=== PATIENT | female | born 1950 | race Caucasian/White ===

== ENCOUNTER 2024-03-03 22:10 | Emergency (ER) | payer MEDICARE, SELFPAY ==
--- NOTE | ~2024-03-03 | CT_ITS ---
CT of the Abdomen and Pelvis: Indication: Abdominal pain Technique: 2.5 mm axial scans were obtained through the abdomen and pelvis following intravenous adm inistration of 100 cc of Omnipaque 350. Dose reduction technique was used on this scan by utilizing a utomated exposure control and iterative reconstruction technique. The dose-length product (DLP) was 1 185.86 mGy-cm. Findings: Scans through the lung bases are unremarkable. The liver, pancreas, adrenals and kidneys are within normal limits. Suggestion of numerous subcentime ter hypodensities throughout the spleen. Cholecystectomy clips are present. There are atherosclerotic calcifications of the aorta. No lymphadenopathy. No bowel obstruction or bowel wall thickening. Ventral hernia superior to the umbilicus contains exte nsive transverse colon. Additional ventral hernia just inferior contains small bowel loops.. Images through the pelvis were performed. Urinary bladder unremarkable. No pelvic mass seen. No ascit es. Impression: Bowel containing ventral hernias, as detailed above. Suggestion of numerous subcentimeter hypodensities of the spleen, indeterminate. Splenic microabscess es are a consideration, versus numerous small splenic cysts or other lesions. Reviewed, dictated and finalized at [facility]. Impression: Bowel containing ventral hernias, as detailed above. Suggestion of numerous subcentimeter hypodensities of the spleen, indeterminate . Splenic microabscesses are a consideration, versus numerous small splenic cys ts or other lesions.
[2024-03-03 22:13] VITALS: BP 153/81; PULSE 87; RESP 17; TEMP 36.7; O2SAT 98
[2024-03-03 22:28] LABS: Basophils Percent Auto 0.4 % (0.2-1.2); Eosinophils Absolute Auto 0.3 K/mm3 (0-0.3); Eosinophils Percent Auto 2.8 % (0-4.4); Hematocrit 34.8 % (37.0-47.0); Hemoglobin 11.2 g/dL (12.0-15.0); Immature Granulocyte Absolute 0.04 K/mm3 (0.00-0.031); Immature Granulocyte Percent A 0.4 % (0-0.5); Lymphocytes Absolute Auto 2.27 K/mm3 (0.9-3.2); Lymphocytes Percent Auto 21.5 % (18.3-44.2); Mean Corpuscular HGB Conc 32.2 g/dl (32-36); Mean Corpuscular Hemoglobin 29.5 pg (26-34); Mean Corpuscular Volume 91.6 fl (80-100); Mean Platelet Volume 9.2 fl (7.4-10.4); Monocytes Absolute Auto 0.9 K/mm3 (0.1-0.6); Monocytes Percent Auto 8.3 % (2.6-8.5); Neutrophils Percent Auto 66.6 % (45.5-73.1); Platelet Count Result 255 k/mm3 (150-375); White Blood Count 10.5 K/mm3 (4.5-10.0)
[2024-03-03 22:37] LABS: Alanine Aminotransferase 16 U/L (6-35); Albumin Level 4.2 g/dL (3.5-5.1); Alkaline Phosphatase 73 U/L (38-126); Anion Gap 8 mmol/L (4-12); Aspartate Amino Transferase 28 U/L (14-36); Bilirubin,Total 0.3 mg/dL (0.2-1.3); Blood Urea Nitrogen 24 mg/dL (7-17); Calcium 9.5 mg/dL (8.4-10.2); Carbon Dioxide 25 mmol/L (22-30); Chloride 108 mmol/L (98-107); Estimated Glomerular Filt Rate > 60; Glucose 120 mg/dL (65-110); Lipase 68 U/L (23-300); Potassium 3.9 mmol/L (3.4-5.0); Sodium 141 mmol/L (137-145)
[2024-03-03 23:01] LABS: Add Urine Microscopic? NO; Appearance Urine Clear (Clear); Bilirubin Urine Negative (Negative); Blood Urine Negative (Negative); Color Urine Yellow (Yellow); Glucose Urine UA Negative (Negative); Ketones Urine Negative (Negative); Leukocyte Esterase Ur Negative LEU/UL (Negative); Nitrate Urine Negative (Negative); Protein Urine Negative (Negative); Urobilinogen Urine 0.2 mg/dL (<2.0); pH Urine 5.5 (5.0-9.0)
[2024-03-04 00:40] VITALS: BP 155/47; PULSE 75; RESP 18; O2SAT 100
--- NOTE | 2024-03-04 01:07 | ECG_ITS ---
Test Date: 2024-03-04 01:50:02 Measurements Intervals [place] Rate: 67 P: 68 [place]: 155 QRS: 5 QRSD: 94 T: -8 QT: 373 QTc: 396 Interpretive Statements SINUS RHYTHM MILD NONSPECIFIC T-WAVE ABNORMALITY BORDERLINE ECG No previous ECG available for comparison Electronically Signed On 03-04-2024 07:27:56 CDT by Kevin Kessler M.D.
--- NOTE | 2024-03-04 01:08 | ED.ABDPAIN ---
HPI - Abdominal Pain General Chief Complaint: Abdominal Pain <HEAVEN Kimball Last Filed: 03/04/24 02:08> Stated Complaint: Abd pain, hx of CATHRYN <Nadia Vela PA-C - Last Filed: 03/04/24 02:08> Time Seen by Provider: 03/04/24 00:52 <Nadia Vela PA-C - Last Filed: 03/04/24 02:08> History of Present Illness HPI narrative: 74-year-old female with history of hypertension, hyperlipidemia, cholecystectomy, tubal ligation, appendectomy, perforated bowel with prior colostomy and colostomy removal in 2017 , known ventral hernia , AFib on Xarelto presents to the emergency department for diffuse abdominal pain. Patient states the pain started 2 days ago and has been generalized and migratory, however it seems to be worse in the epigastrium. She describes the pain as a dull ache but at times it feels sharp. She denies known aggravating or alleviating factors. Reports associated nausea but denies emesis. Her last bowel movement was yesterday and normal. She denies diarrhea, fever, dysuria or hematuria. She does report decrease flatulence. Of note, the patient recently moved here from [place] to be with family. Her son is at bedside. <HEAVEN Kimball Last Filed: 03/04/24 02:08> Related Data Allergies/Adverse Reactions: Allergies Allergy/AdvReac Type Severity Reaction Status Date / Time codeine AdvReac Hallucinati Verified 03/04/24 00:42 ng <Nadia Vela PA-C - Last Filed: 03/04/24 02:08> Review of Systems Review of Systems: All systems reviewed & are unremarkable except as noted in HPI and below <HEAVEN Kimball Last Filed: 03/04/24 02:08> Exam Narrative: GENERAL: Well-appearing, well-nourished, and in no acute distress. HEAD: Normocephalic, atraumatic. EYES: PERRLA and EOMI. ENT: Nares clear, no rhinorrhea or epistaxis. Mucous membranes moist. NECK: Supple. CHEST: Clear to auscultation. No respiratory distress. HEART: Regular rate and rhythm. No murmur heard. Normal peripheral pulses. ABDOMEN: hyperactive bowel sounds. Abdomen soft with diffuse tenderness. No rebound, guarding or rigidity. Left ventral hernia is easily reduced Without overlying skin changes or significant tenderness. No CVA tenderness. EXTREMITIES: Normal range of motion. No edema. SKIN: Warm, dry, no rash. NEURO: No focal deficits. Alert and oriented x3 <Nadia Vela PA-C - Last Filed: 03/04/24 02:08> Course Vital Signs Vital signs: Vital Signs Temperature 36.7 C 03/03/24 22:13 Pulse Rate 87 03/03/24 22:13 Respiratory Rate 17 03/03/24 22:13 Blood Pressure 153/81 H 03/03/24 22:13 Pulse Oximetry 98 03/03/24 22:13 Oxygen Delivery Room Air 03/03/24 22:13 Temperature 36.7 C 03/03/24 22:13 Pulse Rate 64 03/04/24 05:18 Respiratory Rate 17 03/04/24 05:18 Blood Pressure 107/54 L 03/04/24 05:18 Pulse Oximetry 100 03/04/24 05:18 Oxygen Delivery Room Air 03/03/24 22:13 <Nadia Vela PA-C - Last Filed: 03/04/24 02:08> Vital Signs Temperature 36.7 C 03/03/24 22:13 Pulse Rate 87 03/03/24 22:13 Respiratory Rate 17 03/03/24 22:13 Blood Pressure 153/81 H 03/03/24 22:13 Pulse Oximetry 98 03/03/24 22:13 Oxygen Delivery Room Air 03/03/24 22:13 Temperature 36.7 C 03/03/24 22:13 Pulse Rate 64 03/04/24 05:18 Respiratory Rate 17 03/04/24 05:18 Blood Pressure 107/54 L 03/04/24 05:18 Pulse Oximetry 100 03/04/24 05:18 Oxygen Delivery Room Air 03/03/24 22:13 <Rich Chaves MD - Last Filed: 03/04/24 05:43> MDM - Abdominal Pain MDM Narrative Medical decision making narrative: 74-year-old female w/ medical hx as noted in HPI presents to the emergency department for diffuse abdominal pain for 2 days with associated nausea. Vitals are stable. She is afebrile nontoxic appearing. Exam is significant for the above. CBC with mild leukocytosis of 10.5. He
[2024-03-04] MEDS: PANTOPRAZOLE SODIUM IV 40 MG VIAL IV PUSH (01:33)
[2024-03-04] MEDS: ONDANSETRON INJ 4 MG/2 ML VIAL IV PUSH (01:33)
[2024-03-04] MEDS: SODIUM CHLORIDE 0.9% IV 1,000 ML 999 ML IV CONT (01:33)
[2024-03-04 01:48] LABS: Lactic Acid Reflex 0.9 mmol/L (0.7-2.0)
[2024-03-04 02:00] VITALS: BP 119/52; PULSE 68; RESP 18; O2SAT 100
[2024-03-04 02:01] LABS: Troponin I < 0.012 ng/mL (0.000-0.034)
[2024-03-04 05:18] VITALS: BP 107/54; PULSE 64; RESP 17; O2SAT 100
== END 2024-03-04 06:00 | disposition home or self-care (01) ==
PROVIDERS: Physician Assistant; Emergency Provider Emergency Medicine; PCP Family Medicine
DX: R10.84 Generalized abdominal pain (principal); I10 Essential (primary) hypertension; I48.91 Unspecified atrial fibrillation; E78.5 Hyperlipidemia, unspecified; Z90.49 Acquired absence of other specified parts of digestive tract; Z79.01 Long term (current) use of anticoagulants; R94.31 Abnormal electrocardiogram [ECG] [EKG]
CPT/HCPCS: 36415; 74177; 80053; 81003; 83605; 83690; 84484; 85025; 93005; 96361; 96374; 96375; 99284; J2405; J2470; J7030; Q9967

== ENCOUNTER 2024-03-11 01:32 | Emergency (ER) | payer MEDICARE, SELFPAY ==
[2024-03-11] VITALS (10 sets, daily range): BP systolic 104–160; BP diastolic 51–71; PULSE 73–90; RESP 17–20; O2SAT 92–97
--- NOTE | ~2024-03-11 | CT_ITS ---
CT of the Abdomen and Pelvis: Indication: Abdominal pain Technique: 2.5 mm axial scans were obtained through the abdomen and pelvis following intravenous adm inistration of 100 cc of Omnipaque 350. Dose reduction technique was used on this scan by utilizing a utomated exposure control and iterative reconstruction technique. The dose-length product (DLP) was 1 329.59 mGy-cm. COMPARISON: 03/04/2024 Findings: Scans through the lung bases are unremarkable. The liver, pancreas, adrenals and kidneys are within normal limits. Cholecystectomy clips are present . Innumerable small hypodensities throughout the spleen are again present. There are atherosclerotic calcifications of the aorta. No lymphadenopathy. Rectosigmoid anastomosis noted. No bowel obstruction or bowel wall thickening evident. Large supraumb ilical ventral hernia contains transverse colon and small bowel loops. There is additional smaller ve ntral hernia near the umbilicus containing small bowel loops. Images through the pelvis were performed. Urinary bladder unremarkable. No pelvic mass evident. No as cites. Impression: Ventral hernias, one containing transverse colon and small bowel, the second containing small bowel l oops, as noted above. Innumerable small hypodensities throughout the spleen are again noted, indeterminate. Correlate for a ny possibility of splenic microabscesses. Reviewed, dictated and finalized at location . Impression: Ventral hernias, one containing transverse colon and small bowel, the second co ntaining small bowel loops, as noted above. Innumerable small hypodensities throughout the spleen are again noted, indeterm inate. Correlate for any possibility of splenic microabscesses.
--- NOTE | 2024-03-11 02:10 | ECG_ITS ---
Test Date: 2024-03-11 02:37:19 Measurements Intervals [place] Rate: 82 P: 152 [place]: 149 QRS: -27 QRSD: 96 T: -29 QT: 347 QTc: 406 Interpretive Statements ECTOPIC ATRIAL RHYTHM LOW QRS VOLTAGE IN PRECORDIAL LEADS [QRS DEFLECTION < 1.0 mV IN CHEST LEADS] MINIMAL VOLTAGE CRITERIA FOR LVH, CONSIDER NORMAL VARIANT [MEETS CRITERIA IN ONE OF: R(aVL), S(V1), R(V5), R(V5/V6)+S(V1)] POSSIBLE ANTERIOR MYOCARDIAL INFARCTION , OF INDETERMINATE AGE [30 ms Q WAVE IN V3/V4, OR R < 0.2 mV IN V4] Compared to ECG 03/04/2024 01:50:02 Ectopic atrial rhythm now present Low QRS voltage now present Myocardial infarct finding now present Sinus rhythm no longer present T-wave abnormality no longer present Electronically Signed On 03-11-2024 14:32:10 CDT by Henry Schmid M.D.
[2024-03-11 02:50] LABS: Basophils Absolute Auto 0.1 K/mm3 (0.0-0.1); Basophils Percent Auto 0.3 % (0.2-1.2); Eosinophils Absolute Auto 0.2 K/mm3 (0-0.3); Eosinophils Percent Auto 1.3 % (0-4.4); Hematocrit 36.9 % (37.0-47.0); Hemoglobin 11.9 g/dL (12.0-15.0); Immature Granulocyte Absolute 0.06 K/mm3 (0.00-0.031); Immature Granulocyte Percent A 0.4 % (0-0.5); Lymphocytes Absolute Auto 1.97 K/mm3 (0.9-3.2); Lymphocytes Percent Auto 13.8 % (18.3-44.2); Mean Corpuscular HGB Conc 32.2 g/dl (32-36); Mean Corpuscular Hemoglobin 29.7 pg (26-34); Mean Platelet Volume 9.2 fl (7.4-10.4); Monocytes Absolute Auto 1.3 K/mm3 (0.1-0.6); Monocytes Percent Auto 8.8 % (2.6-8.5); Neutrophils Absolute Auto 10.8 K/mm3 (1.3-6.7); Neutrophils Percent Auto 75.4 % (45.5-73.1); Platelet Count Result 278 k/mm3 (150-375); Red Blood Count 4.01 M/mm3 (4.2-5.4); Red Cell Distribution Width 15.1 % (11.5-14.5); White Blood Count 14.3 K/mm3 (4.5-10.0)
[2024-03-11 03:03] LABS: Alanine Aminotransferase 24 U/L (6-35); Albumin Level 4.4 g/dL (3.5-5.1); Alkaline Phosphatase 98 U/L (38-126); Anion Gap 11 mmol/L (4-12); Aspartate Amino Transferase 32 U/L (14-36); Bilirubin,Total 0.4 mg/dL (0.2-1.3); Blood Urea Nitrogen 30 mg/dL (7-17); Calcium 9.9 mg/dL (8.4-10.2); Carbon Dioxide 25 mmol/L (22-30); Chloride 105 mmol/L (98-107); Estimated Glomerular Filt Rate 54; Glucose 119 mg/dL (65-110); Lactic Acid Reflex 1.7 mmol/L (0.7-2.0); Lipase 93 U/L (23-300); Sodium 141 mmol/L (137-145)
[2024-03-11 03:14] LABS: Troponin I < 0.012 ng/mL (0.000-0.034)
--- NOTE | 2024-03-11 03:21 | ED.ABDPAIN ---
HPI - Abdominal Pain General Chief Complaint: Abdominal Pain Stated Complaint: abd cramps Time Seen by Provider: 03/11/24 02:03 History of Present Illness HPI narrative: 74-year-old female with extensive surgical history including cholecystectomy, tubal ligation, appendectomy, right previous perforated bowel with prior colostomy and colostomy reversal. Known ventral hernia with bowel loops. She was is a history of AFib on Xarelto, hypertension, hyperlipidemia. Presents to the emergency room with a chief complaint of lower abdominal pain, constipation and some nauseousness. She states she is on day 4 without any bowel movement and she thinks that she has a small-bowel obstruction. She has a had a bowel obstruction the past requiring surgery. Endorses mild nausea but no vomiting. No chest pain or difficulty in breathing, fever, chills, diarrhea, urinary issues. She was otherwise in her normal state of health. No recent surgeries. No other illnesses recently. No new medication changes. Related Data Allergies Allergy/AdvReac Type Severity Reaction Status Date / Time codeine AdvReac Hallucinati Verified 03/11/24 02:16 ng Review of Systems Review of Systems: As reviewed above Exam Narrative: GENERAL: [Well-appearing, well-nourished, and in no acute distress.] HEAD: [Normocephalic, atraumatic.] EYES: [PERRLA and EOMI.] ENT: Nares clear, no rhinorrhea or epistaxis. Mucous membranes moist. NECK: Supple. CHEST: [Clear to auscultation. No respiratory distress.] HEART: [Regular rate and rhythm]. No murmur heard. [Normal peripheral pulses.] ABDOMEN: [Soft, nondistended], large ventral hernia appreciated but no overlying skin changes, mild tenderness to palpation bilateral lower quadrants without rebound., [No rigidity or guarding] EXTREMITIES: Normal range of motion. [No edema.] SKIN: Warm, dry, no rash. NEURO: [No focal deficits]. Alert and oriented [x3.] PSYCH: [Normal mood and affect.] Course Vital Signs Vital signs: Vital Signs Pulse Rate 87 03/11/24 02:12 Respiratory Rate 20 03/11/24 02:12 Blood Pressure 160/60 H 03/11/24 02:12 Pulse Oximetry 97 03/11/24 02:12 Oxygen Delivery Room Air 03/11/24 02:12 Pulse Rate 80 03/11/24 05:22 Respiratory Rate 17 03/11/24 05:22 Blood Pressure 126/51 L 03/11/24 05:22 Pulse Oximetry 93 03/11/24 05:22 Oxygen Delivery Room Air 03/11/24 02:12 MDM - Abdominal Pain MDM Narrative Medical decision making narrative: 74-year-old female with extensive surgical abdominal history presenting to the emergency depart with nausea, abdominal pain lower abdominal quadrants and constipation for last 4 days. She thinks she has a small bowel obstruction as this resembles the last time she had 1. She was recently seen and evaluated in the hospital 1 week prior for diffuse abdominal pain and had an unremarkable CT and workup at that time. She was discharged home. She states she has been taking a clear liquid diet at home as she was having these abdominal pains but this episode today feels very different from her presentation a week ago. Bedtime she had upper abdominal pain and felt like it could have been cardiac in nature. Today she denies any chest pain, shortness a breath, fever, chills, back pain. No concerns, no urinary concerns. She has a large ventral hernia examination but no overlying skin changes or obvious signs of peritonitis. Blood pressure slightly elevated but no other concerns from a hemodynamic perspective. A broad workup was ordered including CBC, CMP, magnesium, lipase, lactic acid, troponin, urinalysis, EKG. A CT scan with IV contrast was ordered. Her pain is well controlled at this time she did not require any analgesic medications. Patient's EKG shows nonspecific T-wave changes, compared to prior EKG from 1 week prior there are no new interval changes or acute ischemic evidence. No ST segment elevations, depressions. Inversion
[2024-03-11 03:36] LABS: Add Urine Microscopic? YES; Appearance Urine Turbid (Clear); Bilirubin Urine Negative (Negative); Blood Urine 1+ (Negative); Color Urine Dark Yellow (Yellow); Glucose Urine UA Negative (Negative); Ketones Urine Trace mg/dL (Negative); Leukocyte Esterase Ur 2+ LEU/UL (Negative); Nitrate Urine Negative (Negative); Protein Urine Trace mg/dL (Negative); Specific Grav Ur 1.027 (1.001-1.035); pH Urine 5.5 (5.0-9.0)
[2024-03-11 03:38] LABS: Bacteria Urine Trace /hpf; Squamous Epithelial Cell Urine Few /hpf (Few)
[2024-03-11] MEDS: ACETAMINOPHEN 500 MG TABLET 1000 MG PO (05:45)
== END 2024-03-11 06:40 | disposition home or self-care (01) ==
PROVIDERS: Emergency Provider Student in an Organized Health Care Education/Training Program; PCP Family Medicine
DX: K43.9 Ventral hernia without obstruction or gangrene (principal); K59.00 Constipation, unspecified; I48.91 Unspecified atrial fibrillation; I10 Essential (primary) hypertension; E78.5 Hyperlipidemia, unspecified; Z79.01 Long term (current) use of anticoagulants; Z90.49 Acquired absence of other specified parts of digestive tract; R94.31 Abnormal electrocardiogram [ECG] [EKG]
CPT/HCPCS: 36415; 74177; 80053; 81001; 83605; 83690; 84484; 85025; 87086; 93005; 99284; A9270; Q9967

== ENCOUNTER 2024-04-30 13:36 | Outpatient (CLI) | payer MEDICARE, SELFPAY | END 2024-04-30 13:37 | disposition home or self-care (01) | LOC: ANHCARD 13:37 | PROVIDERS: PCP Family Medicine; Visit Provider Nurse Practitioner | DX: R00.0 Tachycardia, unspecified (principal) | CPT/HCPCS: 93242 ==

== ENCOUNTER 2024-08-28 13:52 | Outpatient (CLI) | payer MEDICARE, SELFPAY ==
--- NOTE | ~2024-08-28 | XR_ITS ---
Lumbosacral Spine: AP, oblique, and lateral views Clinical History: Pain Findings: The normal lordotic curve is maintained. No fracture. There is minimal grade 1 anterolisthe sis of L4 over L5. There is advanced degenerative disc narrowing at L1-L2, L2 over L3, L4-L5. There i s extensive severe facet arthropathy. There is mild to moderate degenerative disc narrowing at remain ing levels. The sacroiliac joints are normally outlined. Impression: Advanced degenerative spondylosis, as above, with minimal grade 1 anterolisthesis of L4 over L5. Reviewed, dictated and finalized at location [facility]. Impression: Advanced degenerative spondylosis, as above, with minimal grade 1 anterolisthes is of L4 over L5.
--- NOTE | ~2024-08-28 | XR_ITS ---
AP and lateral views of the bilateral hips Clinical history: Pain Findings: No acute fracture or dislocation is seen. Osseous alignment is anatomic. Bilateral hip and SI joint spaces are preserved. Soft tissues are unremarkable. Impression: No significant abnormality hip joints. Degenerative spondylosis of the visualized lower lumbar spine. Reviewed, dictated and finalized at location . Impression: No significant abnormality hip joints. Degenerative spondylosis of the visualized lower lumbar spine.
== END 2024-08-28 13:53 | disposition home or self-care (01) ==
LOC: GOSHIMG 13:53
PROVIDERS: PCP Family Medicine; Visit Provider Family Medicine
DX: M47.26 Other spondylosis with radiculopathy, lumbar region (principal); M54.9 Dorsalgia, unspecified; G89.29 Other chronic pain; M25.551 Pain in right hip; M25.552 Pain in left hip
CPT/HCPCS: 72110; 73521

== ENCOUNTER 2024-10-30 09:44 | Outpatient (CLI) | payer MEDICARE, SELFPAY ==
[2024-10-30 10:52] LABS: Add Urine Microscopic? YES; Appearance Urine Clear (Clear); Bacteria Urine None Seen /hpf; Bilirubin Urine Negative (Negative); Blood Urine Negative (Negative); Color Urine Yellow (Yellow); Glucose Urine UA Negative (Negative); Ketones Urine Negative (Negative); Leukocyte Esterase Ur 1+ LEU/UL (Negative); Need Manual Microscopic Reviewed; Nitrate Urine Negative (Negative); Non Pathogenic Casts 0-2; Protein Urine Negative (Negative); RBC Urine 0-2 /hpf (0-2); Specific Grav Ur 1.018 (1.001-1.035); Squamous Epithelial Cell Urine Few /hpf (Few); Urobilinogen Urine 0.2 mg/dL (<2.0); WBC Urine 0-5 /hpf (0-3)
[2024-10-30 10:54] LABS: Anion Gap 9 mmol/L (4-12); Blood Urea Nitrogen 26 mg/dL (7-17); Carbon Dioxide 23 mmol/L (22-30); Chloride 109 mmol/L (98-107); Estimated Glomerular Filt Rate > 60; Glucose 109 mg/dL (65-110); Sodium 141 mmol/L (137-145)
[2024-10-30 11:22] LABS: Hemoglobin A1C 5.5 % (<5.7)
== END 2024-10-30 09:45 | disposition home or self-care (01) ==
LOC: ANHLAB 09:45
PROVIDERS: PCP Family Medicine; Visit Provider Orthopaedic Surgery
DX: I48.91 Unspecified atrial fibrillation (principal); I10 Essential (primary) hypertension; R53.83 Other fatigue; R73.9 Hyperglycemia, unspecified
CPT/HCPCS: 36415; 80048; 81001; 83036; 87086

== ENCOUNTER 2024-11-15 09:49 | Outpatient (CLI) | payer MEDICARE, SELFPAY ==
[2024-11-15 12:07] LABS: Basophils Absolute Auto 0.1 K/mm3 (0.0-0.1); Basophils Percent Auto 0.5 % (0.2-1.2); Eosinophils Absolute Auto 0.3 K/mm3 (0-0.3); Eosinophils Percent Auto 2.8 % (0-4.4); Hematocrit 38.7 % (37.0-47.0); Immature Granulocyte Absolute 0.03 K/mm3 (0.00-0.031); Immature Granulocyte Percent A 0.3 % (0-0.5); Lymphocytes Absolute Auto 1.81 K/mm3 (0.9-3.2); Lymphocytes Percent Auto 19.7 % (18.3-44.2); Mean Corpuscular Hemoglobin 28.6 pg (26-34); Mean Corpuscular Volume 92.1 fl (80-100); Mean Platelet Volume 9.2 fl (7.4-10.4); Monocytes Absolute Auto 0.9 K/mm3 (0.1-0.6); Neutrophils Absolute Auto 6.1 K/mm3 (1.3-6.7); Neutrophils Percent Auto 66.7 % (45.5-73.1); Platelet Count Result 261 k/mm3 (150-375); Red Cell Distribution Width 14.8 % (11.5-14.5); White Blood Count 9.2 K/mm3 (4.5-10.0)
[2024-11-15 12:16] LABS: Albumin Level 4.4 g/dL (3.5-5.1)
[2024-11-15 12:18] LABS: INR 1.5; Prothrombin Time 17.7 Seconds (11.1-14.7)
[2024-11-15 12:19] LABS: Partial Thromboplastin Time 37.5 Seconds (22.3-36.8)
[2024-11-15 12:28] LABS: Urine Cotinine NEGATIVE
[2024-11-15 13:36] LABS: MRSA (PCR) NOT DETECTED (NOT DETECTE)
== END 2024-11-15 09:50 | disposition home or self-care (01) ==
LOC: ANHSURGERY 09:56
PROVIDERS: PCP Family Medicine; Visit Provider Orthopaedic Surgery
DX: Z01.812 Encounter for preprocedural laboratory examination (principal); M17.12 Unilateral primary osteoarthritis, left knee
CPT/HCPCS: 80307; 82040; 85025; 85610; 85730; 86850; 86900; 86901; 87641

== ENCOUNTER 2024-11-27 00:12 | Day surgery (SDC) | payer MEDICARE, SELFPAY ==
[2024-11-15 10:16] VITALS: BMI 37.4
[2024-11-15 10:35] VITALS: BP 146/68; PULSE 73; RESP 16; TEMP 36.4; O2SAT 98
--- NOTE | 2024-11-15 11:07 | PC.NURSE ---
Report to the Outpatient Waiting Room, entrance under the green pavilion located off [facility], at time __8:30AM____ on date ___11/27/24___. Planned Procedure Time: ___10:30AM .? Time changes happen often and if your time is changed the preop area will call you the afternoon before. - You and your visitor will be asked to self-screen and do not enter if you have any COVID symptoms. Please call surgeon if you need to reschedule. - A mask is optional within the hospital at this time. Patients may have clear liquids (water, carbonated beverages, clear teas, apple juice) until 3 hours prior to surgery (7:30AM) with a maximum of 20 ounces. - No food from midnight until time of surgery and no smoking, or chewing tobacco (or any form of nicotine). No chewing gum, candy or mints. Take only the following medications with a SIP of water on the morning of surgery: ____LEVOTHYROXINE & METOPROLOL. MAY TAKE ALPRAZOLAM NEEDED. DO NOT STOP ANY OF YOUR OTHER PRESCRIPTION MEDICATIONS PRIOR TO SURGERY EXCEPT THE FOLLOWING Medications to discontinue per physician _HOLD XERALTO 3 DAYS PRE-OP PER DR NARANJO/DR FISH- LAST DOSE 11/23/24. HOLD ALL VITAMINS/SUPPLEMENTS 7 DAYS PRE-OP PER DR FISH- LAST DOSE 11/19/24. Please no make-up, nail serbian, hairspray, perfume, deodorant, or body powder the day of surgery.? No jewelry (including any body piercings) or valuables the day of surgery, leave them at home.? Please take a shower or bath the night before, or the morning of, surgery with an antibacterial soap.? Wear comfortable, loose fitting clothing.? - Jewelry must be removed prior to entering the operating room.? Rings and piercings that are not removed may be cut off. - The hospital will not accept responsibility for valuables.? - Please leave all valuables, including medications, at home the day of surgery. If you are going home after surgery, a licensed local bulk driver must drive you home.? - NO public transportation without another adult if you receive anesthesia. - We recommend that an adult stay with you for 24 hours following discharge. - We also recommend that you do not drive, make important decision, drink alcoholic beverages, or take any drugs that were not prescribed by your health care provider for at least 24 hours after your discharge time. Follow any additional instructions given to you from your surgeon. Telephone instructions given to ____PATIENT and asked if any additional questions and then verbalized understanding. Patient advised to call surgeon office or pre surgery nurse liaison [phone] if any additional questions.
[2024-11-27] VITALS (20 sets, daily range): BP systolic 133–174; BP diastolic 47–86; PULSE 61–80; RESP 10–20; TEMP 35.9–36.9; O2SAT 91–100; BMI 37.8
--- NOTE | ~2024-11-27 | XR_ITS ---
EXAMINATION: [id number] DATE: 11/27/2024 13:17 INDICATION: Postoperative evaluation TECHNIQUE: 2 views of the left knee were performed FINDINGS: There is a left total knee arthroplasty in expected position. Subcutaneous gas with soft t issue swelling are consistent with recent surgery. No periprosthetic fracture is appreciated. Skin jhony are noted. IMPRESSION: Expected perioperative appearance of a left total knee arthroplasty, as detailed above. No periprosthetic fracture. Reviewed, dictated and finalized at location A. IMPRESSION: Expected perioperative appearance of a left total knee arthroplasty , as detailed above. No periprosthetic fracture.
--- NOTE | 2024-11-27 07:06 | WPDHPUPDATE1 ---
History and Physical Update Update Date/Time: 11/27/24 07:06 History and Physical has been reviewed, including an updated exam of the patient. There are NO changes in the patient's condition. Risks, benefits, and alternatives have been discussed and questions answered. Patient agrees to proceed with procedure.
[2024-11-27] MEDS: LACTATED RINGERS 1,000 ML 30 ML IV CONT ×2 (09:00→14:05)
[2024-11-27] MEDS: ACETAMINOPHEN 500 MG TABLET 1000 MG PO (09:15)
--- NOTE | 2024-11-27 10:04 | P.PNAN_ITS ---
Anes - Initial Pre Proc Eval Procedure: Operation Date: 11/27/24 10:30 Proposed Procedures p Left Total Knee Arthroplasty - Oc Casanova MD Date/Time: 11/27/24 10:04 Surgeon: Oc Casanova MD Pre Op Diagnosis: Left Knee DJD Patient Data Age: 74 Gender: F Height: 1.56 m Weight: 92.3 kg Last Vital Signs Temp 36.4 C 11/27/24 08:40 Pulse 73 11/27/24 08:40 Resp 16 11/27/24 08:40 BP 146/58 H 11/27/24 08:40 Pulse Ox 98 11/27/24 08:40 O2 Del Method Room Air 11/15/24 10:35 Allergies Allergy/AdvReac Type Severity Reaction Status Date / Time pregabalin AdvReac Intermediate Dizziness Verified 11/27/24 09:31 codeine AdvReac Hallucinati Verified 11/27/24 09:31 ng Home Medications ?Medication ?Instructions ?Recorded ?Confirmed ?Type acetaminophen 650 mg 1,300 mg PO Q12H PRN pain 03/28/24 11/15/24 History tablet,extended release (Tylenol Arthritis Pain) alprazolam 0.25 mg tablet 0.25 mg PO DAILY PRN anxiety #30 03/28/24 11/15/24 Rx tabs atorvastatin 10 mg tablet 10 mg PO DAILY 03/28/24 11/15/24 History coQ10 (ubiquinol) 100 mg capsule 100 mg PO DAILY 03/28/24 11/27/24 History (Qunol Ishan CoQ10) multivitamin 1 tablet PO DAILY 03/28/24 11/27/24 History multivitamin with minerals 2 tablet PO DAILY 03/28/24 11/27/24 History (Hair,Skin and Nails tablet) polyethylene glycol 3350 17 17 g PO DAILY PRN CONSTIPATED 03/28/24 11/15/24 History gram/dose oral powder (Miralax) vitamins A,C,F-czbw-cvcihn 2,148 1 tablet PO BID 03/28/24 11/27/24 History mcg-113 mg-45 mg-17.4 mg tablet (PreserVision AREDS) metoprolol tartrate 100 mg tablet 100 mg PO DAILY 04/18/24 11/27/24 History levothyroxine 112 mcg tablet See Rx Instructions .Route 06/20/24 11/27/24 Rx .COMPLEX #90 tabs CPAP mask #1 ea 10/03/24 11/15/24 Rx rivaroxaban 20 mg tablet (Xarelto) 20 mg PO DAILY #90 tabs 10/25/24 11/27/24 Rx chlorhexidine gluconate 4 % 1 applic topical ONCE #237 mL 11/15/24 11/27/24 Rx topical liquid (Hibiclens) ezetimibe 10 mg tablet 5 mg PO DAILY 11/15/24 11/15/24 History Laboratory Tests 11/27/24 08:54 PT Pending INR Pending APTT Pending Patient hx anesthesia problems: none Family hx anesthesia problems: none Results Review: All pre-operative results and documents have been reviewed as part of the pre- operative evaluation. 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 Small bowel perforation Bowel perforation Surgical History Surgical History History of knee surgery 2015-R medial meniscal tear w/ medial chondromalacia 2019-L medial and lateral meniscal tear History of bone graft Bone Graft, right clavicle, 1951 History of lumpectomy of left breast x2 Hx of cholecystectomy Hx of appendectomy H/O tubal ligation History of colostomy reversal History of hernia surgery History of knee replacement R TKA 12/08/15 History of cardiac radiofrequency ablation Family History Family History Mother Congestive heart failure Thyroid disease Hypertension Sibling Heart problem Hypertension Heart disease Other Breast cancer Social History Social History Smoking status: Never smoker Second hand tobacco smoke exposure: Yes Alcohol intake: current Alcohol use details: occasionally Substance use: never Do You Feel Safe in your Home?: Yes Lack of Transportation: No Lack of Food: Never True Current Housing: I Have Housing Concerned About Future Housing: No Difficulty Paying Gas/Electric Bills: No Difficulty Paying for Meds: No Currently Unemployed: No Education: High School Diploma/GED Difficulty w/ Childcare or Family Care: No Living arrangements: with family Additional living arrangements comments: STAYING W/ SON & FAMILY Occupation/Education: retired Gender identity (if verbalized by the patient): Female Sexual Orientation (if Verbalized by the Patient): Straight or Heterosexual Spiritual care concerns: No Agree to blood products: Yes Anes - Eval Final PreProcedure Day of Procedure 11/27/24 10:04 Patient weight: obese Heart: regular rate and rhythm Lungs: clear to auscultation Airway: Mallampati scale class II Neurological: alert and oriented Last oral intake: >/= 8 hours ASA classification: III Emergent: no Anesthetic plan: proceed Anesthesia type and monitoring: general LMA and standard monitoring Results Review: All pre-operative results and documents have been reviewed as part of the pre- operative evaluation. Informed Consent: The patient's anesthetic plan and its attendant risks and benefits were discussed with the patient/family/POA. Questions were solicited and answers provided to the satisfaction of the patient/family/POA.
[2024-11-27 10:10] LABS: INR 1.1; Prothrombin Time 14.4 Seconds (11.1-14.7)
[2024-11-27 10:11] LABS: Partial Thromboplastin Time 30.7 Seconds (22.3-36.8)
[2024-11-27] MEDS: ceFAZolin 2 GM/D5W 50 ML 2 GM/50 ML BAG IVPB ×2 (10:20→17:43)
[2024-11-27] MEDS: SODIUM CHLORIDE 0.9% IV 38.7 ML, ROPivacaine HCL 1% 200 MG, KETOROLAC INJ (*BKC) 15 MG,... INFILTRATE (10:59)
--- NOTE | 2024-11-27 12:30 | W.PM.PROC2 ---
Procedure Note - Detailed Date of Procedure 11/27/24 Pre-op Diagnosis Left Knee DJD Post-op Diagnosis Same Procedure Performed L TKA Surgeon Oc Casanova MD Anesthesia General Description of Procedure THE LEFT KNEE WAS PREPPED AND DRAPED IN THE STERILE FASHION. A MIDLINE SKIN INCISION WAS MADE. A MEDIAL PARAPATELLAR ARTHROTOMY WAS MADE. THE PATELLA WAS EVERTED. THERE WAS TRICOMPARTMENT DJD. THERE WAS MINIMAL PATELLA DJD. AN INTRAMEDULLARY FLORA WAS PLACED IN THE FEMUR. A DISTAL FEMORAL CUT WAS MADE IN 5 DEGREES OF VALGUS REMOVING APPROXIMATELY 9 MM OF BONE FROM THE DISTAL FEMUR. THE FEMUR WAS SIZED TO 62.5. A 62.5 FEMORAL CUTTING BLOCK WAS PLACED IN 3 DEGREES OF EXTERNAL ROTATION AND IN ALIGNMENT WITH ELLI'S LINE AND THE TRANSEPICONDYLAR AXIS. ANTERIOR POSTERIOR AND CHAMFER CUTS WERE MADE. THE CUTS WERE EXCELLENT. NEXT AN INTRAMEDULLARY CUTTING GUIDE WAS PLACED IN THE TIBIA. A TRANS TIBIAL CUT WAS MADE ALONG THE LONG AXIS OF THE TIBIA. APPROXIMATELY 10 MM OF BONE WAS REMOVED FROM THE HIGH SIDE OF THE TIBIA. THE TIBIA WAS THEN PLANED TO A SMOOTH SURFACE. POSTERIOR FEMORAL OSTEOPHYTES WERE REMOVED FROM THE FEMORAL CONDYLES. A 71 TIBIAL TRIAL WAS PLACED IN ALIGNMENT WITH THE 1/3 MEDIAL ASPECT OF THE TIBIAL TUBERCLE. THEN A 62.5 FEMORAL TRIAL COMPONENT WAS PLACED. BOTH HAD EXCELLENT FITS. EVENTUALLY A 10 MM CR POLYETHYLENE TRIAL COMPONENT WAS PLACED. THE KNEE WAS TAKEN THROUGH A RANGE OF MOTION. THE KNEE CAME OUT TO FULL EXTENSION. THERE WAS NO ABNORMAL TILT TO THE PATELLA. THERE WAS GOOD A/P AND VARUS/VALGUS STABILITY. THERE WAS NO EXCESSIVE ROLL BACK WITH FLEXION. THE TRIAL COMPONENTS WERE REMOVED. THEN A 62.5 FEMORAL COMPONENT AND 71 TIBIAL COMPONENT WITH A 10 CR POLYETHYLENE COMPONENT WERE CEMENTED INTO PLACE. ONCE THE CEMENT WAS HARD THE KNEE WAS TAKEN THROUGH A ROM AGAIN AND FOUND TO BE STABLE WITH NO PATELLA TILT NO EXCESSIVE ROLL BACK WITH FLEXION AND GOOD STABILITY WITH COMPLETE AND FULL EXTENSION. THE KNEE WAS IRRIGATED WITH STERILE BETADINE AND WATER FOR ABOUT 3 MINUTES. THE BLEEDERS WERE CAUTERIZED. THE ARTHROTOMY WAS REPAIRED WITH NUMBER 1 VICRYL. THE SUB CUTANEOUS LAYER WITH 2-0 VICRYL AND THE SKIN WITH HERMAN. THE WOUND WAS WASHED AND A STERILE DRESSING WAS APPLIED. PATIENT WAS EXTUBATED. Estimated Blood Loss -150.0 Pathology None sent Complications No immediate complications Condition Stable Disposition PACU
--- NOTE | 2024-11-27 12:47 | SUR.PHASEI ---
XRAY TO LEFT KNEE IN PROGRESS.
--- NOTE | 2024-11-27 13:35 | WPDANESPNB ---
Anes - Peripheral Nerve Block Date/Time: 11/27/24 13:35 I have discussed with the patient/family/POA the placement of a peripheral nerve block for post-operative pain management, including associated risks, benefits, complications, and side effects. Alternative methods of post-operative analgesia were detailed. Questions were solicited and answers provided to the satisfaction of the patient/family/POA. Time-Out: A pre-procedural Time-Out was completed immediately before starting the procedure and confirmed: Patient Identification, Site, Procedure, Patient Position and the Availability of Requisite Equipment. Clinical Indications: Acute post-operative pain management requested by the operative surgeon. Nerve Block Insertion Note Anes-nerve block: adductor canal left Patient position: supine Skin prep: chlorhexidine Needle: 22 gauge, stimulating, insulated echogenic needle. Needle length: 80 mm Technique: ultrasound Technique comment: done in pacu Injectate: bupivacaine 0.5% with epi 5 mcg/ml (30 ml no epi) and dexamethasone (mg) (4) Observations: tolerated well Complications: none Procedure start time:: 1325 Procedure end time:: 3
[2024-11-27] MEDS: fentaNYL CITRATE INJ (*CRX) 100 MCG/2 ML VIAL 25 MCG IV PUSH ×3 (13:51→14:05)
--- NOTE | 2024-11-27 14:50 | ADMGEN ---
This patient, Daija Aguirre, was admitted to [facility] Surg Room 301-01. Patient/family oriented to hospital policies and general routines including ID bracelet, bed and alarms, visiting hours, pain management, procedures, bathroom and other care routines, personal items, smoking policy, room service/diet, and visiting hours. Information on how to activate the Rapid Response Team has been discussed. Patient/Family are encouraged to report perceived risks to care and to ask questions if they do not understand what they are told or what they should do.
[2024-11-27] MEDS: HYDROcodone/acetaminophen (*CRX) 10-325 MG TABLET 1 TAB PO (15:56)
[2024-11-27] MEDS: ONDANSETRON INJ 4 MG/2 ML VIAL IV PUSH (16:41)
[2024-11-27] MEDS: SENNA/DOCUSATE SODIUM TABLET 2 TAB PO (17:43)
[2024-11-27] MEDS: CELECOXIB 200 MG CAPSULE PO (17:44)
[2024-11-27] MEDS: RIVAROXABAN 20 MG TABLET PO (17:44)
[2024-11-27] MEDS: FAMOTIDINE 20 MG TABLET PO (20:26)
[2024-11-27] MEDS: ACETAMINOPHEN 500 MG TABLET PO (20:26)
[2024-11-28 00:21] VITALS: BP 131/70; PULSE 57; RESP 20; TEMP 36.4; O2SAT 97
[2024-11-28] MEDS: ceFAZolin 2 GM/D5W 50 ML 2 GM/50 ML BAG IVPB ×2 (01:01→09:12)
[2024-11-28] MEDS: oxyCODONE/ACETAMINOPHEN (*CRX) 5-325 MG TABLET 1 TABLET PO (01:12)
[2024-11-28 03:10] VITALS: PULSE 59; RESP 18; O2SAT 97
[2024-11-28 04:23] VITALS: BP 139/44; PULSE 59; RESP 20; TEMP 36.3; O2SAT 96
[2024-11-28] MEDS: LEVOTHYROXINE SODIUM 112 MCG TABLET BY MOUTH (05:31)
[2024-11-28 05:45] LABS: Hematocrit 32.1 % (37.0-47.0); Hemoglobin 10.3 g/dL (12.0-15.0); Immature Granulocyte Percent A 0.6 % (0-0.5); Lymphocytes Absolute Auto 0.94 K/mm3 (0.9-3.2); Mean Corpuscular HGB Conc 32.1 g/dl (32-36); Mean Corpuscular Hemoglobin 29.0 pg (26-34); Mean Corpuscular Volume 90.4 fl (80-100); Nucleated Red Blood Cells Absolute Auto 0.000 K/mm3 (0.0-0.012); Nucleated Red Blood Cells Perc 0.0 % (0.0-0.2); Platelet Count Result 220 k/mm3 (150-375); Red Blood Count 3.55 M/mm3 (4.2-5.4); White Blood Count 18.7 K/mm3 (4.5-10.0)
[2024-11-28 05:58] LABS: Anion Gap 8 mmol/L (4-12); Blood Urea Nitrogen 30 mg/dL (7-17); Calcium 9.4 mg/dL (8.4-10.2); Carbon Dioxide 23 mmol/L (22-30); Chloride 108 mmol/L (98-107); Estimated CRCL calculation 47 ml/min; Estimated Glomerular Filt Rate 59; Glucose 141 mg/dL (65-110); Potassium 4.4 mmol/L (3.4-5.0); Sodium 139 mmol/L (137-145)
[2024-11-28 08:23] VITALS: BP 142/60; PULSE 65; RESP 16; TEMP 36.1; O2SAT 100
[2024-11-28] MEDS: SENNA/DOCUSATE SODIUM TABLET 2 TAB PO (09:04)
[2024-11-28] MEDS: HYDROcodone/acetaminophen (*CRX) 10-325 MG TABLET 1 TAB PO ×2 (09:04→14:34)
[2024-11-28 09:05] VITALS: PULSE 64
[2024-11-28] MEDS: ATORVASTATIN 10 MG TABLET PO (09:05)
[2024-11-28] MEDS: CELECOXIB 200 MG CAPSULE PO (09:05)
[2024-11-28] MEDS: METOPROLOL TARTRATE 50 MG TAB 100 MG PO (09:05)
[2024-11-28] MEDS: EZETIMIBE 5 MG TABLET PO (09:05)
[2024-11-28] MEDS: FAMOTIDINE 20 MG TABLET PO (09:05)
--- NOTE | 2024-11-28 09:43 | PM.PNORT ---
Progress Note: A&P Assessment and Plan (1) S/P total knee arthroplasty: Qualifiers: Laterality: left Qualified Code(s): Z96.652 - Presence of left artificial knee joint Code(s): Z96.659 - Presence of unspecified artificial knee joint Status: Acute Assessment and Plan: POD #1: Left TKA Continue PT/OT. WBAT. Walker. HIGH FALL RISK. Continue pain control. Ice Knee. Protect skin. DVT prophylaxis with Xarelto. SCDs. Incentive Spirometry Use reviewed. Monitor Dressing. Change prior to discharge. Bowel Regimen. Dispo: Home with Home Health pending progress with PT/OT Plan Reviewed history, exam, radiographs and current labs with attending MD and covering surgeon, Dr. Casanova, who agrees with current plan as indicated above. No further recommendations from Dr. Casanova at this time. Time Spent With Patient Time with patient: 15 - 25 minutes Subjective Subjective Date/Time Seen: 11/28/24 09:43 Post Op day: 1 Principal diagnosis: Left Knee DJD Interval history: POD #1: Left TKA Patient doing well. Pain well controlled. No new concerns. Hopeful d/c today. Review of Systems Review of Systems: All systems reviewed & are unremarkable except as noted in HPI and below Constitutional: Constitutional: Denies fever(s) and Denies headache(s) ENT: Denies headache(s) Cardiovascular: Cardiovascular: Denies chest pain, Denies diaphoresis, Denies palpitations and Denies dyspnea Respiratory: Respiratory: Denies dyspnea Gastrointestinal: Gastrointestinal: Denies abdominal pain, Denies constipation, Denies nausea and Denies vomiting Genitourinary: Genitourinary: Reports nocturia and Denies dysuria Musculoskeletal: Musculoskeletal: Reports arthralgias (Left Knee ), Reports joint swelling (Left Knee ) and Reports limited range of motion (ROM limited due to recent surgical intervention LEFT Knee ) Neurologic: Denies headache(s) Endocrine: Endocrine: Denies palpitations Exam Const: General: comfortable and no acute distress Resp: Effort & Inspection: normal respiratory effort Cardio: Rate: regular rate Rhythm: regular rhythm GI: GI Palp: Yes Soft to palpation, No Tenderness to palpation present (GI) and No Guarding due to palpation present (GI) Skin: General skin exam: wounds noted (see extremity assessment ) Wounds: wounds noted (see extremity assessment ) Neuro: Cognition (Neuro): normal cognition Other: NV intact aside from block. Moves toes. Sensation intact to light touch. +ankle dorsiflexion/plantarflexion. Extrem: Left lower extremity: normal to inspection, normal capillary refill, knee Details: tenderness (diffuse ) Location: of the patella, swelling (moderate consistent to recent surgery ), abnormal ROM (limited due to recent surgery ) Details: pain with active ROM and pain with passive ROM and ecchymosis (as expected with recent surgery. NO hematoma. ), lower leg (Negative Joseph's Sign ), ankle (+ankle dorsiflexion/plantarflexion ) Details: normal to inspection, no edema and normal ROM; no tenderness and no swelling and foot Details: normal capillary refill, toes with normal ROM, vascular exam Details: dorsalis pedis pulse present and motor-sensory exam light-touch normal; no tenderness Other: Incision left TKA dressing c/d/i. No hematoma. No signs of infection. No wound dehiscence. Psych: Mental Status: mental status grossly normal Objective Data Vital Signs Vital Signs: Vital Signs - 24 hr 11/27/24 12:26 11/27/24 12:40 11/27/24 12:55 Temperature 36.9 C Pulse Rate 80 76 74 Respiratory Rate 10 L 20 20 Blood Pressure 163/71 H 160/66 H 172/66 H Pulse Oximetry 100 100 100 Oxygen Delivery Simple Face Mask Simple Face Mask Simple Face Mask Oxygen Flow Rate 8 8 8 11/27/24 13:00 11/27/24 13:15 11/27/24 13:30 Temperature Pulse Rate 73 76 77 Respiratory Rate 18 20 18 Blood Pressure 174/59 H 174/64 H 165/62 H Pulse Oximetry 100 100 91 Oxygen Delivery Room Air Room Air Room Air Oxygen Flow Rate 11/27/24 13:45 11/27/24 14:00 11/27/24 14:15 Temperature Pulse Rate 75 73 73 Respiratory Rate 14 12 14 Blood Pressure 159/59 H 172/61 H 163/66 H Pulse Oximetry 98 99 99 Oxygen Delivery Room Air Nasal Cannula Nasal Cannula Oxygen Flow Rate 2 2 11/27/24 14:30 11/27/24 14:55 11/27/24 15:10 Temperature 35.9 C L 36.1 C L Pulse Rate 68 66 65 Respiratory Rate 13 14 14 Blood Pressure 157/58 H 153/57 H 150/60 H Pulse Oximetry 99 98 99 Oxygen Delivery Nasal Cannula Oxygen Flow Rate 2 11/27/24 15:39 11/27/24 15:40 11/27/24 16:40 Temperature 36.1 C L 36.3 C L Pulse Rate 71 68 Respiratory Rate 16 16 Blood Pressure 148/50 H 148/86 H Pulse Oximetry 94 96 97 Oxygen Delivery Nasal Cannula Oxygen Flow Rate 2 11/27/24 20:00 11/27/24 20:23 11/27/24 21:00 Temperature 36.1 C L Pulse Rate 66 66 Respiratory Rate 20 20 Blood Pressure 133/47 L Pulse Oximetry 100 100 97 Oxygen Delivery Room Air Autopap Oxygen Flow Rate 11/27/24 22:35 11/28/24 00:21 11/28/24 03:10 Temperature 36.4 C L Pulse Rate 61 57 L 59 L Respiratory Rate 17 20 18 Blood Pressure 131/70 Pulse Oximetry 97 97 97 Oxygen Delivery Autopap Autopap Oxygen Flow Rate 11/28/24 04:23 11/28/24 08:02 11/28/24 09:05 Temperature 36.3 C L Pulse Rate 59 L 64 Respiratory Rate 20 Blood Pressure 139/44 L Pulse Oximetry 96 Oxygen Delivery Room Air Oxygen Flow Rate Intake/Output Intake/Output: Intake & Output 11/25/24 11/26/24 11/27/24 11/28/24 23:59 23:59 23:59 23:59 Intake Total 1840 400 Output Total 1400 Balance 440 400 Meds/Results Medications: Active Medications Generic Name Dose Route Start Last Admin Trade Name Freq PRN Reason Stop Dose Admin Acetaminophen 500 mg 11/27/24 14:38 11/27/24 20:26 Acetaminophen 500 Mg Tablet PO 500 mg Q6H PRN Administration Pain Rated 1-3 Hydrocodone Bitart/Acetaminophen 1 tab 11/27/24 14:38 11/28/24 09:04 Hydrocodone/Acetaminophen (*Crx) 10-325 Mg Tablet PO 1 tab Q4H PRN Administration Pain Rated 7-10 Alprazolam 0.25 mg 11/27/24 14:38 Alprazolam (*Crx) 0.25 Mg Tablet PO DAILY PRN anxiety Atorvastatin Calcium 10 mg 11/28/24 09:00 11/28/24 09:05 Atorvastatin 10 Mg Tablet PO 10 mg DAILY SYLVIA Administration Celecoxib 200 mg 11/27/24 17:00 11/28/24 09:05 Celecoxib 200 Mg Capsule PO 200 mg BIDWM SYLVIA Administration Diazepam 5 mg 11/27/24 14:38 Diazepam (*Crx) 5 Mg Tablet PO Q8H PRN Spasms Diphenhydramine HCl 25 mg 11/27/24 14:38 Diphenhydramine Hcl Inj 50 Mg/Ml Vial IV PUSH Q6H PRN Itching Ezetimibe 5 mg 11/28/24 09:00 11/28/24 09:05 Ezetimibe 5 Mg Tablet PO 5 mg DAILY SYLVIA Administration Famotidine 20 mg 11/27/24 21:00 11/28/24 09:05 Famotidine 20 Mg Tablet PO 20 mg Q12HR SYLVIA Administration Hydromorphone HCl 1 mg 11/27/24 14:38 Hydromorphone Hcl Inj (*Crx) 1 Mg/Ml Syr IV PUSH Q2H PRN Breakthrough Pain Rated 7-10 or NPO Hydromorphone HCl 0.5 mg 11/27/24 14:38 Hydromorphone Hcl Inj (*Crx) 1 Mg/Ml Syr IV PUSH Q2H PRN Breakthrough Pain Rated 4-6 or NPO Cefazolin Sodium 2 gm in 50 mls @ 100 mls/hr 11/27/24 18:00 11/28/24 09:12 Ancef 2 Gm/D5w 50 Ml IVPB 11/28/24 10:29 100 mls/hr Q8H SYLVIA Administration Ibuprofen 800 mg in 200 mls @ 400 mls/hr 11/27/24 14:38 Caldolor 800 Mg/200 Ml IVPB Q6H PRN Breakthrough Pain Rated 1-3 or NPO Levothyroxine Sodium 112 mcg 11/28/24 06:30 11/28/24 05:31 Levothyroxine Sodium 112 Mcg Tablet BY MOUTH 112 mcg DAILY@0630 SYLVIA Administration Metoprolol Tartrate 100 mg 11/28/24 09:00 11/28/24 09:05 Metoprolol Tartrate 50 Mg Tab PO 100 mg DAILY SYLVIA Administration Naloxone HCl 0.1 mg 11/27/24 14:38 Naloxone Hcl 0.4 Mg/Ml Vial IV PUSH Q2M PRN Opiate Reversal Ondansetron HCl 4 mg 11/27/24 14:38 11/27/24 16:41 Ondansetron Inj 4 Mg/2 Ml Vial IV PUSH 4 mg Q4H PRN Administration Nausea And Vomiting Oxycodone/Acetaminophen 1 tablet 11/27/24 14:38 11/28/24 01:12 Oxycodone/Acetaminophen (*Crx) 5-325 Mg Tablet PO 1 tablet Q4H PRN Administration Pain Rated 4-6 Polyethylene Glycol 17 gm 11/28/24 09:00 11/28/24 09:06 Polyethylene Glycol 3350 17 Gm Powd.Pack PO 17 gm QAM SYLVIA Administration Rivaroxaban 20 mg 11/27/24 18:00 11/27/24 17:44 Rivaroxaban 20 Mg Tablet PO 20 mg EVENING SYLVIA Administration Senna/Docusate Sodium 2 tab 11/27/24 17:00 11/28/24 09:04 Senna/Docusate Sodium Tablet PO 2 tab BID SYLVIA Administration Radiology Results: ITS Impressions Knee X-Ray 11/27/24 13:55 IMPRESSION: Expected perioperative appearance of a left total knee arthroplasty, as detailed above. No periprosthetic fracture. Labs Labs: Laboratory Results - last 24 hr 11/27/24 11/28/24 08:54 05:20 WBC 18.7 H RBC 3.55 L Hgb 10.3 L Hct 32.1 L MCV 90.4 MCH 29.0 MCHC 32.1 RDW 14.7 H Plt Count 220 MPV 9.4 Immature Gran % (Auto) 0.6 H Neut % (Auto) 87.0 H Lymph % (Auto) 5.0 L [place] % (Auto) 7.3 Eos % (Auto) 0.0 Baso % (Auto) 0.1 L Lymph # (Auto) 0.94 [place] # (Auto) 1.4 H Eos # (Auto) 0.0 Baso # (Auto) 0.0 Abs Immat Gran (auto) 0.11 H Absolute Neuts (auto) 16.3 H Absolute Nucleated RBC 0.000 Nucleated RBC % 0.0 PT 14.4 INR 1.1 APTT 30.7 Sodium 139 Potassium 4.4 Chloride 108 H Carbon Dioxide 23 Anion Gap 8 BUN 30 H Creatinine 0.93 Estim Creat Clear Calc 47 Estimated GFR 59 Glucose 141 H Calcium 9.4 Quality VTE Prophylaxis VTE prophylaxis: pharmacologic ordered
[2024-11-28 12:23] VITALS: BP 113/58; PULSE 91; RESP 14; TEMP 36.1; O2SAT 98
--- NOTE | 2024-11-28 14:27 | P.PNAN_ITS ---
Anes - Prog Note Post-Op Date/Time: 11/28/24 14:27 Cardiovascular status: normal Respiratory status: normal Airway patency: baseline Mental status: baseline Vital Signs: Last Vital Signs Temp 36.1 C L 11/28/24 12:23 Pulse 91 11/28/24 12:23 Resp 14 11/28/24 12:23 BP 113/58 L 11/28/24 12:23 Pulse Ox 98 11/28/24 12:23 O2 Del Method Room Air 11/28/24 08:02 O2 Flow Rate 2 11/27/24 15:39 Pain Score (VAS): 3 I/O: Intake & Output 11/27/24 11/28/24 11/28/24 23:59 07:59 15:59 Intake Total 290 400 470 Balance 290 400 470 Laboratory Tests 11/28/24 05:20 11/28/24 05:20 11/28/24 05:20 WBC 18.7 H RBC 3.55 L Hgb 10.3 L Hct 32.1 L MCV 90.4 MCH 29.0 MCHC 32.1 RDW 14.7 H Plt Count 220 MPV 9.4 Immature Gran % (Auto) 0.6 H Neut % (Auto) 87.0 H Lymph % (Auto) 5.0 L [place] % (Auto) 7.3 Eos % (Auto) 0.0 Baso % (Auto) 0.1 L Lymph # (Auto) 0.94 [place] # (Auto) 1.4 H Eos # (Auto) 0.0 Baso # (Auto) 0.0 Abs Immat Gran (auto) 0.11 H Absolute Neuts (auto) 16.3 H Absolute Nucleated RBC 0.000 Nucleated RBC % 0.0 Sodium 139 Potassium 4.4 Chloride 108 H Carbon Dioxide 23 Anion Gap 8 BUN 30 H Creatinine 0.93 Estim Creat Clear Calc 47 Estimated GFR 59 Glucose 141 H Calcium 9.4 Patient Feedback: Patient satisfied with anesthetic care.
--- NOTE | 2024-11-28 15:29 | P.DS_ITS ---
DS: Admitting Diagnosis Discharge Date 11/28/2024 Admitting Diagnosis Left Knee DJD DS: Discharge Diagnosis Discharge Diagnosis (1) S/P total knee arthroplasty: Qualifiers: Laterality: left Qualified Code(s): Z96.652 - Presence of left artificial knee joint Code(s): Z96.659 - Presence of unspecified artificial knee joint Status: Acute Assessment and Plan: POD #1: Left TKA Continue PT/OT. WBAT. Walker. HIGH FALL RISK. Continue pain control. Ice Knee. Protect skin. DVT prophylaxis with Xarelto. SCDs. Incentive Spirometry Use reviewed. Monitor Dressing. Change prior to discharge. Bowel Regimen. Dispo: Home with Home Health pending progress with PT/OT Plan Reviewed history, exam, radiographs and current labs with attending MD and covering surgeon, Dr. Casanova, who agrees with current plan as indicated above. No further recommendations from Dr. Casanova at this time. DS: Summary Hospital Course Reason for hospitalization: Left TKA Hospital Course: 74 year old female admitted s/p Left TKA for postoperative medical management, pain control and mobilization with PT/OT. Patient progressed well with PT/OT. Pain and vitals remained stable throughout. The patient has been cleared to be discharged home with home health at this time. All discharge care instructions reviewed at depth. New medications reviewed. Follow up planned for 3 weeks in the outpatient orthopedic clinic with Dr. Casanova. Dr. Casanova in agreement with safe discharge at this time. Status at Discharge Functional status at discharge: uses cane/walker Overall status at discharge: patient is progressing back to baseline Time Spent with Patient Time attestation: Total time spent providing and/or coordinating discharge services: Exam Const: General: comfortable and no acute distress Resp: Effort & Inspection: normal respiratory effort Cardio: Rate: regular rate Rhythm: regular rhythm Skin: General skin exam: wounds noted (see extremity assessment ) Wounds: wounds noted (see extremity assessment ) Neuro: Cognition (Neuro): normal cognition Other: NV intact aside from block. Moves toes. Sensation intact to light touch. +ankle dorsiflexion/plantarflexion. Extrem: Left lower extremity: normal to inspection, normal capillary refill, knee Details: tenderness (diffuse ) Location: of the patella, swelling (moderate consistent to recent surgery ), abnormal ROM (limited due to recent surgery ) Details: pain with active ROM and pain with passive ROM and ecchymosis (as expected with recent surgery. NO hematoma. ), lower leg (Negative Joseph's Sign ) , ankle (+ankle dorsiflexion/plantarflexion ) Details: normal to inspection, no edema and normal ROM; no tenderness and no swelling and foot Details: normal capillary refill, toes with normal ROM, vascular exam Details: dorsalis pedis pulse present and motor-sensory exam light-touch normal; no tenderness Other: Incision left TKA dressing c/d/i. No hematoma. No signs of infection. No wound dehiscence. Psych: Mental Status: mental status grossly normal DS: Data Data Completed and Pending Labs on day of discharge: Labs from last 24 hours 11/28/24 05:20 WBC 18.7 H RBC 3.55 L Hgb 10.3 L Hct 32.1 L MCV 90.4 MCH 29.0 MCHC 32.1 RDW 14.7 H Plt Count 220 MPV 9.4 Immature Gran % (Auto) 0.6 H Neut % (Auto) 87.0 H Lymph % (Auto) 5.0 L [place] % (Auto) 7.3 Eos % (Auto) 0.0 Baso % (Auto) 0.1 L Lymph # (Auto) 0.94 [place] # (Auto) 1.4 H Eos # (Auto) 0.0 Baso # (Auto) 0.0 Abs Immat Gran (auto) 0.11 H Absolute Neuts (auto) 16.3 H Absolute Nucleated RBC 0.000 Nucleated RBC % 0.0 Sodium 139 Potassium 4.4 Chloride 108 H Carbon Dioxide 23 Anion Gap 8 BUN 30 H Creatinine 0.93 Estim Creat Clear Calc 47 Estimated GFR 59 Glucose 141 H Calcium 9.4 Discharge Plan Discharge Patient Disposition: Home with Home Health Service Discharge Instructions: Care Coordination: Patient to have [facility] for PT/OT eval and treat, and group home. Their phone number is [phone] if you have any questions; they will contact you to schedule their first visit. Post Op Total Knee Replacement Instructions Dr. Oc Casanova [phone] * Your dressing will be changed prior to your discharge. You will be sent home with one additional dressing to be changed on post op day 7 by the home health RN. Your jhony will be removed on the 14th day after surgery and steri- strips will be placed. Please practice good hand hygiene and do not touch your incision in order to prevent infection. * You may shower with your dressing but do not submerge in a bath tub. * Do not drive or operate machinery until you are released by Dr. Casanova. * Do not walk without a walker for any reason until you are released by Dr. Casanova. * Continue to use your ice machine. Please use a towel or pillow case to protect your skin before applying your ice machine. * Do NOT place a pillow under your knee. You may use a pillow from the calf down if needed. This will prevent a flexion contracture postoperatively. * CPM: You may begin use of your CPM machine at home if you have been given one pre-operatively. DO NOT USE WHILE YOU ARE SLEEPING. * ROMTech: If you were given a ROMTech Portable Connect System preoperatively, you are to begin use on the day you arrive home postoperatively. Our goal is for you to use the machine 5 times per day. The sessions are very short in the beginning and will progress as you progress. We are able to monitor your progress from afar as well as your pain and other reported symptoms. If you have difficulties with the machine, please call . NOTE: Please attempt to use the machine even when in pain as this will clean up helper banquet your therapy with very gentle motion. * Your first post op appointment was sent to you via mail preoperatively. If you have any questions or are unable to make your appointment, please contact our office for scheduling questions. * Your medications have been sent to your pharmacy. You have been sent home with pain medication. Please pickle pumper an over the counter stool softener to prevent constipation due to narcotic use. Please keep this in mind during your postoperative recovery. If you are not experiencing regular bowel movements, please contact our office for further instruction. * Please contact our office with any questions/concerns regarding your knee at [phone]. Patient Instructions: Antibiotic Form, Rivaroxaban (By mouth) Patient Language: Yi Stand Alone Forms: General Discharge Information Follow-up/Referrals: cO Casanova MD [Physician] - Keep Reg. Scheduled Appt. Discharge Medications: New oxycodone-acetaminophen 5-325 mg tablet 1 tablet PO Q4-6H Qty: 30 0RF Continued metoprolol tartrate 100 mg tablet 100 mg PO DAILY (DME) CPAP mask See Rx Instructions .Route .MEDSUPPLY Qty: 1 0RF Rx Instructions: Rx: ResMed AirFit N30 mask with size SW nasal cushion atorvastatin 10 mg tablet 10 mg PO DAILY Patient Comments: QPM coQ10 (ubiquinol) [Qunol Ishan CoQ10] 100 mg capsule 100 mg PO DAILY PreserVision AREDS 2,148 mcg-113 mg-45 mg-17.4mg tablet 1 tablet PO BID Rx Instructions: administer with AM and PM meals polyethylene glycol 3350 [Miralax] 17 gram/dose powder 17 g PO DAILY PRN (Reason: CONSTIPATED) Hair,Skin and Nails Tablet 2 tablet PO DAILY multivitamin Tablet 1 tablet PO DAILY acetaminophen [Tylenol Arthritis Pain] 650 mg tablet extended release 1,300 mg PO Q12H PRN (Reason: pain) alprazolam 0.25 mg tablet 0.25 mg PO DAILY PRN (Reason: anxiety) Qty: 30 0RF ezetimibe 10 mg tablet 5 mg PO DAILY levothyroxine 112 mcg tablet See Rx Instructions .ROUTE .COMPLEX Qty: 90 3RF Dose Instruction: TAKE 1 TABLET EVERY DAY Patient Comments: QAM Rx Instructions: TAKE 1 TABLET EVERY DAY Xarelto 20 mg tablet 20 mg PO DAILY Qty: 90 1RF Rx Instructions: must administer with evening meal Discontinued chlorhexidine gluconate [Hibiclens] 4 % liquid 1 applic topical ONCE Qty: 237 0RF Rx Instructions: Cleanse operative extremity, in shower, every day for 1 week prior to surgical procedure. Quality VTE Prophylaxis VTE prophylaxis: pharmacologic ordered
== END 2024-11-28 16:55 | disposition home health service (06) ==
LOC: ANHSURGERY 08:41 → ANH3MEDSUR 14:45
PROVIDERS: PCP Family Medicine; Visit Provider Orthopaedic Surgery
PROC: (CPT 27447; principal; 2024-11-27 10:30)
DX: M17.12 Unilateral primary osteoarthritis, left knee (principal); G89.18 Other acute postprocedural pain; I48.91 Unspecified atrial fibrillation; Z79.01 Long term (current) use of anticoagulants; E66.9 Obesity, unspecified; Z68.37 Body mass index [BMI] 37.0-37.9, adult
CPT/HCPCS: 27447; 64447; 36415; 73560; 80048; 85025; 85610; 85730; 97110; 97161; 97165; 97530; 97535; A9270; C1713; J0171; J0690; J1100; J1171; J1885; J2405; J2704; J2795; J3010; J7120

== ENCOUNTER 2024-11-28 20:11 | Emergency (ER) | payer MEDICARE, SELFPAY ==
--- NOTE | ~2024-11-28 | XR_ITS ---
XR chest 2V Ordering provider: Cristi Mccullough MD History: 74 years Female with . chest pain; knee surgery yesterday . Comparison: None. FINDINGS: MEDIASTINUM: The cardiac silhouette is not enlarged. LUNGS: No infiltrates, effusions or pneumothorax. OTHER: No free air under the diaphragm. Degenerative changes of the spine. IMPRESSION: No acute cardiopulmonary pathology. Reviewed, dictated and finalized at location A.
--- NOTE | ~2024-11-28 | XR_ITS ---
EXAMINATION: XR knee LT min 4V DATE: 11/29/2024 11:54 CDT INDICATION: Postoperative evaluation TECHNIQUE: 4 views left knee FINDINGS: There is a left total knee arthroplasty, with patellar resurfacing in expected position. Subcutaneous gas with fluid and air in the joint and overlying skin jhony are consistent with recen t intervention. No evidence of periprosthetic fracture. IMPRESSION: 1. Expected perioperative appearance of a left total knee arthroplasty and patellar resurfacing, as d etailed above. Reviewed, dictated and finalized at location A. IMPRESSION: 1. Expected perioperative appearance of a left total knee arthroplasty and bañuelos llar resurfacing, as detailed above.
--- NOTE | 2024-11-28 20:17 | ECG_ITS ---
Test Date: 2024-11-28 20:22:15 Measurements Intervals [place] Rate: 67 P: 0 TN: 139 QRS: 15 QRSD: 95 T: -11 QT: 369 QTc: 392 Interpretive Statements SINUS RHYTHM NONSPECIFIC T-WAVE ABNORMALITY Compared to ECG 03/11/2024 02:37:19 limb lead misplacement is corrected Electronically Signed On 11-29-2024 12:46:02 CDT by Bjorn Guardado M.D.
[2024-11-28 20:23] VITALS: BP 148/69; PULSE 61; RESP 14; TEMP 36.4; O2SAT 99
[2024-11-28 23:31] VITALS: BP 161/51; PULSE 68; RESP 18; O2SAT 100
[2024-11-29 00:11] LABS: Hematocrit 32.1 % (37.0-47.0); Hemoglobin 10.0 g/dL (12.0-15.0); Immature Granulocyte Percent A 0.6 % (0-0.5); Lymphocytes Absolute Auto 1.61 K/mm3 (0.9-3.2); Mean Corpuscular HGB Conc 31.2 g/dl (32-36); Mean Corpuscular Hemoglobin 28.2 pg (26-34); Mean Corpuscular Volume 90.4 fl (80-100); Nucleated Red Blood Cells Absolute Auto 0.000 K/mm3 (0.0-0.012); Nucleated Red Blood Cells Perc 0.0 % (0.0-0.2); Platelet Count Result 238 k/mm3 (150-375); Red Blood Count 3.55 M/mm3 (4.2-5.4); White Blood Count 17.1 K/mm3 (4.5-10.0)
[2024-11-29 00:20] VITALS: O2SAT 97
[2024-11-29 00:24] LABS: INR 1.4; Prothrombin Time 16.8 Seconds (11.1-14.7)
[2024-11-29 00:25] LABS: Partial Thromboplastin Time 33.3 Seconds (22.3-36.8)
[2024-11-29 00:45] LABS: Troponin I < 0.012 ng/mL (0.000-0.034)
--- NOTE | 2024-11-29 01:10 | ED_ITS ---
HPI - Chest Pain General Chief Complaint: Chest Pain Stated Complaint: chest pressure Time Seen by Provider: 11/28/24 23:57 History of Present Illness HPI narrative: 74-year-old female who is postop day 1 from left total knee arthroplasty presenting to the emergency depart with left knee pain and chest pressure. Patient has a history of AFib on Xarelto, hypertension. She did take her Xarelto this morning after her surgery. She states that she has been able to ambulate after her surgery and exercise at home but states that after using the exercise bike she started developing pain in her left knee and some trouble walking. She was prescribed oxycodone with Tylenol upon discharge and has been taking them scheduled. She also had an episode of chest tightness going towards her back that is now resolved. Denies any fever, chills, nauseousness and vomiting, abdominal pain, back pain. No present chest discomfort or shortness of breath. She was otherwise in her normal state of health. No history of DVT or PE. She takes Xarelto for AFib. No falls or trauma. Related Data Home Medications ?Medication ?Instructions ?Recorded ?Confirmed ?Last Taken ?Type acetaminophen 650 mg 1,300 mg PO Q12H PRN pain 03/28/24 11/15/24 Unknown History tablet,extended release (Tylenol Arthritis Pain) atorvastatin 10 mg tablet 10 mg PO DAILY 03/28/24 11/15/24 Unknown History coQ10 (ubiquinol) 100 mg capsule 100 mg PO DAILY 03/28/24 11/27/24 11/19/24 History (Qunol Ishan CoQ10) multivitamin 1 tablet PO DAILY 03/28/24 11/27/24 11/19/24 History multivitamin with minerals 2 tablet PO DAILY 03/28/24 11/27/24 11/19/24 History (Hair,Skin and Nails tablet) polyethylene glycol 3350 17 17 g PO DAILY PRN CONSTIPATED 03/28/24 11/15/24 Unknown History gram/dose oral powder (Miralax) vitamins A,C,T-mqva-plhagg 2,148 1 tablet PO BID 03/28/24 11/27/24 11/19/24 History mcg-113 mg-45 mg-17.4 mg tablet (PreserVision AREDS) metoprolol tartrate 100 mg tablet 100 mg PO DAILY 04/18/24 11/27/2425 History ezetimibe 10 mg tablet 5 mg PO DAILY 11/15/24 11/15/24 Unknown History Allergies Allergy/AdvReac Type Severity Reaction Status Date / Time pregabalin AdvReac Intermediate Dizziness Verified 11/27/24 15:00 codeine AdvReac Hallucinati Verified 11/27/24 15:00 ng Review of Systems 2 Review of Systems: As reviewed above in [facility] Past Medical History Medical History Postoperative complication Degenerative disc disease, lumbar 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 Small bowel perforation Bowel perforation Surgical History Surgical History S/P total knee arthroplasty History of knee surgery 2015-R medial meniscal tear w/ medial chondromalacia 2019-L medial and lateral meniscal tear History of bone graft Bone Graft, right clavicle, 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 History of lumpectomy of left breast x2 Hx of cholecystectomy Hx of appendectomy H/O tubal ligation History of colostomy reversal History of hernia surgery History of knee replacement R TKA 12/08/15 History of cardiac radiofrequency ablation Family History Family History Mother Congestive heart failure Thyroid disease Hypertension Sibling Heart problem Hypertension Heart disease Other Breast cancer Social History Social History Smoking status: Never smoker Second hand tobacco smoke exposure: Yes Alcohol intake: never Alcohol use details: occasionally Substance use: never Substance use type: does not use Do You Feel Safe in your Home?: Yes Lack of Transportation: No Lack of Food: Never True Current Housing: I Have Housing Concerned About Future Housing: No Difficulty Paying Gas/Electric Bills: No Difficulty Paying for Meds: No Currently Unemployed: No Education: High School Diploma/GED Difficulty w/ Childcare or Family Care: No Living arrangements: with family Additional living arrangements comments: STAYING W/ SON & FAMILY Occupation/Education: retired Gender identity (if verbalized by the patient): Female Sexual Orientation (if Verbalized by the Patient): Straight or Heterosexual Spiritual care concerns: No Agree to blood products: Yes Exam 2 Narrative: GENERAL: [Well-appearing, well-nourished, and in no acute distress.] HEAD: [Normocephalic, atraumatic.] EYES: [PERRLA and EOMI.] ENT: Nares clear, no rhinorrhea or epistaxis. Mucous membranes moist. NECK: Supple. CHEST: [Clear to auscultation. No respiratory distress.] HEART: [Regular rate and rhythm]. No murmur heard. [Normal peripheral pulses.] ABDOMEN: [Soft, nondistended], [nontender], [No rigidity or guarding] EXTREMITIES: Left total knee arthroplasty appears intact with dressing intact without any bleeding, strike through or dehiscence of the wounds. Good range of motion without any significant pain. No significant pain with palpation. Distal neuro vasculature intact with good pulse, strength and sensation. SKIN: Warm, dry, no rash. NEURO: [No focal deficits]. Alert and oriented [x3.] PSYCH: [Normal mood and affect.] Course Vital Signs Vital signs: Vital Signs Temperature 36.4 C L 11/28/24 20:23 Pulse Rate 61 11/28/24 20:23 Respiratory Rate 14 11/28/24 20:23 Blood Pressure 148/69 H 11/28/24 20:23 Pulse Oximetry 99 11/28/24 20:23 Oxygen Delivery Room Air 11/28/24 20:23 Temperature 36.4 C L 11/28/24 20:23 Pulse Rate 75 11/29/24 04:36 Respiratory Rate 20 11/29/24 04:36 Blood Pressure 139/52 L 11/29/24 04:36 Pulse Oximetry 96 11/29/24 04:36 Oxygen Delivery Room Air 11/29/24 00:20 MDM - Chest Pain MDM Narrative Medical decision making narrative: 74-year-old female who is postop day 1 from left total knee arthroplasty presenting to the emergency depart with left knee pain and chest pressure. Patient has a history of AFib on Xarelto, hypertension. She did take her Xarelto this morning after her surgery. She states that she has been able to ambulate after her surgery and exercise at home but states that after using the exercise bike she started developing pain in her left knee and some trouble walking. She was prescribed oxycodone with Tylenol upon discharge and has been taking them scheduled. She also had an episode of chest tightness going towards her back that is now resolved. Denies any fever, chills, nauseousness and vomiting, abdominal pain, back pain. No present chest discomfort or shortness of breath. She was otherwise in her normal state of health. No history of DVT or PE. She takes Xarelto for AFib. No falls or trauma. Examination reveals left knee and total knee arthroplasty appears intact with dressing intact without any bleeding, strike through or dehiscence of the wounds. Good range of motion without any significant pain. No significant pain with palpation. Distal neuro vasculature intact with good pulse, strength and sensation. She is afebrile, blood pressure with chronic hypertension, no tachycardia, tachypnea, hypoxia. She did have an episode of chest pain but presently asymptomatic. She is requesting pain medicines for her knee. She was given IV Dilaudid and Zofran as well as a fluid bolus while workup is underway. CBC, CMP, troponin serially, EKG, chest x-ray and x-rays of the left knee obtained. Patient likely has some postoperative pain and swelling. Patient's left knee x-ray shows no periprosthetic issues or fracture, postoperative changes as expected otherwise no acute abnormalities. Her laboratory studies show a downtrending leukocytosis from previous, normal hemoglobin at baseline anemia. Normal platelet count. Electrolytes are unremarkable. GFR on baseline, glucose 149. LFTs mildly elevated but no previous recent baseline to compare to. Troponin negative, delta troponin negative. Lipase negative. X-ray of the chest showed no acute abnormality. EKG shows normal sinus rhythm and chronic T-wave inversion without any acute abnormalities from prior. Patient is improved from a pain standpoint but given her mobility issues will require a ambulance transfer back according to the son. Her workup was unrevealing and she can safely follow-up with regular doctor and family dinner service specialist about pain management. Patient discharged at this time. Medical Records Data Attestation: I reviewed the patient's medical records. Lab Data Attestation: I reviewed the patient's lab results. 11/29/24 00:02 11/29/24 00:02 Labs: Lab Results 11/29/24 11/29/24 11/29/24 Range/Units 00:02 00:02 03:10 WBC 17.1 H (4.5-10.0) K/mm3 RBC 3.55 L (4.2-5.4) M/mm3 Hgb 10.0 L (12.0-15.0) g/dL Hct 32.1 L (37.0-47.0) % MCV 90.4 (80-100) fl MCH 28.2 (26-34) pg MCHC 31.2 L (32-36) g/dl RDW 15.0 H (11.5-14.5) % Plt Count 238 (150-375) k/mm3 MPV 9.3 (7.4-10.4) fl Immature Gran % (Auto) 0.6 H (0-0.5) % Neut % (Auto) 80.7 H (45.5-73.1) % Lymph % (Auto) 9.4 L (18.3-44.2) % [place] % (Auto) 8.9 H (2.6-8.5) % Eos % (Auto) 0.2 (0-4.4) % Baso % (Auto) 0.2 (0.2-1.2) % Lymph # (Auto) 1.61 (0.9-3.2) K/mm3 [place] # (Auto) 1.5 H (0.1-0.6) K/mm3 Eos # (Auto) 0.0 (0-0.3) K/mm3 Baso # (Auto) 0.0 (0.0-0.1) K/mm3 Abs Immat Gran (auto) 0.11 H (0.00-0.031) K/mm3 Absolute Neuts (auto) 13.7 H (1.3-6.7) K/mm3 Absolute Nucleated RBC 0.000 (0.0-0.012) K/mm3 Nucleated RBC % 0.0 (0.0-0.2) % PT 16.8 H (11.1-14.7) Seconds INR 1.4 APTT 33.3 (22.3-36.8) Seconds Sodium 137 (137-145) mmol/L Potassium 4.1 (3.4-5.0) mmol/L Chloride 105 (98-107) mmol/L Carbon Dioxide 22 (22-30) mmol/L Anion Gap 10 (4-12) mmol/L BUN 32 H (7-17) mg/dL Creatinine 1.03 H (0.7-1.0) mg/dL Estim Creat Clear Calc 42 ml/min Estimated GFR 52 L (59 - ) Glucose 149 H (65-110) mg/dL Calcium 9.6 (8.4-10.2) mg/dL Total Bilirubin 0.4 (0.2-1.3) mg/dL AST 133 H (14-36) U/L ALT 197 H (6-35) U/L Alkaline Phosphatase 89 (38-126) U/L Troponin I < 0.012 < 0.012 < 0.012 (0.000-0.034) ng/mL Total Protein 7.0 (6.3-8.2) g/dL Albumin 3.9 (3.5-5.1) g/dL Lipase 26 (23-300) U/L Imaging Data Attestation: I personally reviewed and interpreted this imaging study as follows: My impression: No acute abnormalities status post total knee arthroplasty Discharge Plan Discharge Clinical Impression: Post-operative pain, Chest pain Patient Disposition: Home Condition: Stable Instructions: Antibiotic Form Additional Instructions: Your laboratory studies are unrevealing, your cardiac markers are undetectable several times, chest x-ray without any findings and your knee x-ray appears intact and stable postoperative without any acute changes or hardware issues. Follow-up with the claim specialist about pain management and expected course for recovery and follow-up. Return with any new or worsening concerns. Patient Language: Micronesian Prescriptions: No Action metoprolol tartrate 100 mg tablet 100 mg PO DAILY (DME) CPAP mask See Rx Instructions .Route .MEDSUPPLY Qty: 1 0RF Rx Instructions: Rx: ResMed AirFit N30 mask with size SW nasal cushion atorvastatin 10 mg tablet 10 mg PO DAILY Patient Comments: QPM coQ10 (ubiquinol) [Qunol Ishan CoQ10] 100 mg capsule 100 mg PO DAILY PreserVision AREDS 2,148 mcg-113 mg-45 mg-17.4mg tablet 1 tablet PO BID Rx Instructions: administer with AM and PM meals polyethylene glycol 3350 [Miralax] 17 gram/dose powder 17 g PO DAILY PRN (Reason: CONSTIPATED) Hair,Skin and Nails Tablet 2 tablet PO DAILY multivitamin Tablet 1 tablet PO DAILY acetaminophen [Tylenol Arthritis Pain] 650 mg tablet extended release 1,300 mg PO Q12H PRN (Reason: pain) alprazolam 0.25 mg tablet 0.25 mg PO DAILY PRN (Reason: anxiety) Qty: 30 0RF ezetimibe 10 mg tablet 5 mg PO DAILY oxycodone-acetaminophen 5-325 mg tablet 1 tablet PO Q4-6H Qty: 30 0RF levothyroxine 112 mcg tablet See Rx Instructions .ROUTE .COMPLEX Qty: 90 3RF Dose Instruction: TAKE 1 TABLET EVERY DAY Patient Comments: QAM Rx Instructions: TAKE 1 TABLET EVERY DAY Xarelto 20 mg tablet 20 mg PO DAILY Qty: 90 1RF Rx Instructions: must administer with evening meal Follow-up/Referrals: [place] Justin DO [Primary Care Provider] - Time of Disposition: 04:37
[2024-11-29] MEDS: ONDANSETRON INJ 4 MG/2 ML VIAL IV PUSH (01:22)
[2024-11-29] MEDS: HYDROmorphone HCL INJ (*CRX) 2 MG/ML VIAL 0.5 MG IV PUSH (01:22)
[2024-11-29] MEDS: LACTATED RINGERS 1,000 ML 999 ML IV CONT (01:22)
[2024-11-29 02:23] LABS: Alanine Aminotransferase 197 U/L (6-35); Albumin Level 3.9 g/dL (3.5-5.1); Alkaline Phosphatase 89 U/L (38-126); Anion Gap 10 mmol/L (4-12); Aspartate Amino Transferase 133 U/L (14-36); Bilirubin,Total 0.4 mg/dL (0.2-1.3); Blood Urea Nitrogen 32 mg/dL (7-17); Calcium 9.6 mg/dL (8.4-10.2); Carbon Dioxide 22 mmol/L (22-30); Chloride 105 mmol/L (98-107); Estimated CRCL calculation 42 ml/min; Estimated Glomerular Filt Rate 52; Glucose 149 mg/dL (65-110); Lipase 26 U/L (23-300); Potassium 4.1 mmol/L (3.4-5.0); Sodium 137 mmol/L (137-145); Total Protein 7.0 g/dL (6.3-8.2)
[2024-11-29 02:47] LABS: Troponin I < 0.012 ng/mL (0.000-0.034)
[2024-11-29 04:05] LABS: Troponin I < 0.012 ng/mL (0.000-0.034)
[2024-11-29 04:36] VITALS: BP 139/52; PULSE 75; RESP 20; O2SAT 96
[2024-11-29 06:33] VITALS: BP 154/51; PULSE 91; RESP 16; O2SAT 98
== END 2024-11-29 07:44 | disposition home or self-care (01) ==
PROVIDERS: Emergency Provider Student in an Organized Health Care Education/Training Program; PCP Family Medicine
DX: G89.18 Other acute postprocedural pain (principal); R07.9 Chest pain, unspecified; I48.91 Unspecified atrial fibrillation; I10 Essential (primary) hypertension; Z79.01 Long term (current) use of anticoagulants; Z79.891 Long term (current) use of opiate analgesic; Z96.652 Presence of left artificial knee joint
CPT/HCPCS: 36415; 71046; 73564; 80053; 83690; 84484; 85025; 85610; 85730; 93005; 96361; 96374; 96375; 99284; J1171; J2405; J7120

== ENCOUNTER 2025-01-09 09:57 | Outpatient (CLI) | payer MEDICARE, SELFPAY ==
[2025-01-09 11:20] LABS: Hematocrit 38.3 % (37.0-47.0); Hemoglobin 12.0 g/dL (12.0-15.0); Immature Granulocyte Percent A 0.3 % (0-0.5); Lymphocytes Absolute Auto 2.13 K/mm3 (0.9-3.2); Mean Corpuscular HGB Conc 31.3 g/dl (32-36); Mean Corpuscular Hemoglobin 29.0 pg (26-34); Mean Corpuscular Volume 92.5 fl (80-100); Nucleated Red Blood Cells Absolute Auto 0.000 K/mm3 (0.0-0.012); Nucleated Red Blood Cells Perc 0.0 % (0.0-0.2); Platelet Count Result 304 k/mm3 (150-375); Red Blood Count 4.14 M/mm3 (4.2-5.4); White Blood Count 9.9 K/mm3 (4.5-10.0)
[2025-01-09 11:26] LABS: Alanine Aminotransferase 28 U/L (6-35); Albumin Level 4.6 g/dL (3.5-5.1); Alkaline Phosphatase 103 U/L (38-126); Anion Gap 11 mmol/L (4-12); Aspartate Amino Transferase 40 U/L (14-36); Bilirubin,Total 0.5 mg/dL (0.2-1.3); Blood Urea Nitrogen 25 mg/dL (7-17); Calcium 10.6 mg/dL (8.4-10.2); Carbon Dioxide 26 mmol/L (22-30); Chloride 106 mmol/L (98-107); Cholesterol 145 mg/dL (0-200); Estimated Glomerular Filt Rate > 60; Glucose 109 mg/dL (65-110); HDL Direct 56 mg/dL; Potassium 4.8 mmol/L (3.4-5.0); Sodium 143 mmol/L (137-145); Total Protein 7.9 g/dL (6.3-8.2); Triglycerides 137 mg/dL (<150)
[2025-01-09 11:42] LABS: Free T3 4.26 pg/mL (2.45-5.93); Free T4 Free Thyroxine 1.14 ng/dL (0.78-2.19)
[2025-01-09 12:06] LABS: Thyroid Stimulating Hormone 6.920 uIU/mL (0.465-4.680)
== END 2025-01-09 09:58 | disposition home or self-care (01) ==
LOC: ANHGOSHLAB 09:58
PROVIDERS: PCP Family Medicine; Visit Provider Nurse Practitioner
DX: E03.9 Hypothyroidism, unspecified (principal); I48.91 Unspecified atrial fibrillation; D64.9 Anemia, unspecified; R74.8 Abnormal levels of other serum enzymes
CPT/HCPCS: 36415; 80053; 80061; 82306; 84439; 84443; 84481; 85025; 86803

== ENCOUNTER 2025-03-06 13:07 | Outpatient (CLI) | payer MEDICARE, SELFPAY ==
--- NOTE | ~2025-03-06 | DEXA_ITS ---
Bone Density Report Name: GARY RUTLEDGE Age: 75 Sex: Female Ethnicity: White Date of : 1950 Indication: postmenopausal; screening for osteoporosis; height loss; Referring Provider: Sindhu Monique Study: Bone densitometry was performed. Exam Date: March 06, 2025 Accession number: [id number] Bone Density: Region BMD T-score Z-score Classification AP Spine(L1, L2, L3) 1.256 2.2 4.6 Normal Femoral Neck (Left) 0.905 0.5 2.7 Normal Total Hip (Left) 0.863 -0.6 1.3 Normal Femoral Neck (Right) 0.831 -0.2 2.0 Normal Total Hip (Right) 0.890 -0.4 1.5 Normal Total Hip Mean 0.877 -0.5 1.4 Normal World Health Organization criteria for BMD impression classify patients as: Normal (T-score at or above -1.0), Osteopenia (T-score between -1.0 and -2.5), or Osteoporosis (T-score at or below -2.5). 10-year Fracture Risk: FRAX not reported because: All T-scores for Spine Total, Hip Total, Femoral Neck at or above -1.0 Clinical Information Provided by Patient: Has used the following medications: Vitamin D Patient maximum height was 65.5 Menopause Age: 48 Drinks caffeinated beverages Onset of menses at age 10 Number of children 4 Impression: The patient has normal bone mass. Discussion: BONE DENSITY IS ABOVE THE MINIMUM DESIRABLE LEVEL AT ALL SKELETAL SITES TESTED. This patient?s bone mineral density is above the minimum desirable level (T-score -1.0 or better) at all sites measured. The patient should follow a healthful lifestyle (good nutrition with adequate calcium and vitamin D, and appropriate weight-bearing exercise). Follow-Up: Consider repeating this study in 5 years or sooner if there is some new clinical indication. Reported by: CHARLES on 03/06/2025 2:20:00 PM. Reviewed, dictated and finalized at location A.
== END 2025-03-06 13:08 | disposition home or self-care (01) ==
LOC: MICIMG 13:11
PROVIDERS: PCP Family Medicine; Visit Provider Nurse Practitioner
DX: Z13.820 Encounter for screening for osteoporosis (principal); Z78.0 Asymptomatic menopausal state
CPT/HCPCS: 77080

== ENCOUNTER 2025-03-27 11:13 | Outpatient (CLI) | payer MEDICARE, SELFPAY ==
[2025-03-27 19:28] LABS: Free T4 Free Thyroxine 1.27 ng/dL (0.78-2.19)
[2025-03-27 19:39] LABS: Thyroid Stimulating Hormone 0.519 uIU/mL (0.465-4.680)
== END 2025-03-27 11:14 | disposition home or self-care (01) ==
LOC: ANHGOSHLAB 11:14
PROVIDERS: PCP Family Medicine; Visit Provider Family Medicine
DX: E03.9 Hypothyroidism, unspecified (principal)
CPT/HCPCS: 36415; 84439; 84443